=== PATIENT | female | born 1940 | race African-American/Black ===

== ENCOUNTER 2024-05-07 15:38 | Emergency (ER) | payer BC, MEDICARE ==
[~2024-05-07] VITALS: Ht 170.2 cm; Wt 68.0 kg
[2024-05-07 15:41] VITALS: O2SAT 97
[2024-05-07] MEDS: SODIUM CHLORIDE 0.9% 1,000 ML IV ONE (16:31)
[2024-05-07 16:48] LABS: BASOPHILS % 0.7 % (0.0-2.0); EOSINOPHILS % 2.1 % (0.0-5.0); HEMATOCRIT. 36.1 % (36.0-48.0); HEMOGLOBIN. 11.5 g/dL (12.0-16.0); MEAN CORPUSCULAR HEMOGLOBIN 27.8 pg (28.0-32.0); MEAN PLATELET VOLUME 7.5 fl (7.4-10.4); MONOCYTES % 13.7 % (2.0-8.0); NEUTROPHILS % 67.5 % (40.0-76.0); PLATELET 265 x1000/uL (130-400); RED BLOOD CELL COUNT 4.14 mill/uL (4.2-5.4); RED CELL DISTRIBUTION WIDTH 15.6 % (11.6-14.6); WHITE BLOOD COUNT 5.5 x1000/uL (4.5-11.0)
[2024-05-07 16:54] LABS: CHLORIDE 101 mEq/L (98-107); POTASSIUM 3.9 mEq/L (3.5-5.1); SODIUM 137 mEq/L (136-145)
[2024-05-07 16:55] LABS: CALCIUM 8.9 mg/dL (8.7-10.4); CARBON DIOXIDE 30 mEq/L (21-32)
[2024-05-07 17:00] LABS: CREATININE 0.9 mg/dL (0.6-1.0); GLUCOSE 128 mg/dL (70-105); UREA NITROGEN BLOOD 10 mg/dL (9-23)
[2024-05-07 17:06] LABS: ETHANOL BLOOD < 10 mg/dL (<10); TROPONIN I HIGH SENSITIVITY < 4 ng/L (3.0-34)
[2024-05-07 17:40] VITALS: BP 129/70; PULSE 72; RESP 17; TEMP 36.9; O2SAT 98
== END 2024-05-07 17:30 | disposition home or self-care (01) ==
LOC: ER 15:38
DX: R55 Syncope and collapse (principal); I10 Essential (primary) hypertension; Z88.0 Allergy status to penicillin
CPT/HCPCS: 80048; 80320; 85025; 84484; 36415; 73030; 70450; 96360; 99285; J7030; 99284; G0480